=== PATIENT | female | born 1950 | race Caucasian/White ===

== ENCOUNTER 2016-07-06 08:53 | Day surgery (SDC) | payer MEDICARE, OTHER ==
[2016-07-06] MEDS ORDERED: KETOROLAC 0.45% OPHTH DROPS OPTH ONE (09:07)
[2016-07-06] MEDS ORDERED: CYCLOPENTOLATE 1% OPHTH DROPS 2 ML OPTH ONE (09:07)
[2016-07-06] MEDS ORDERED: TROPICAMIDE 1% OPHTH 2 ML DROPS OPTH ONE (09:07)
[2016-07-06] MEDS ORDERED: LACTATED RINGERS 500 ML IV ONE (09:13)
[2016-07-06] MEDS ORDERED: MIDAZOLAM 2 MG/2 ML VIAL IVP ONE (09:40)
[2016-07-06] MEDS ORDERED: CHONDR SULF/HYALURONATE SYRINGE IO ONE (10:14)
[2016-07-06] MEDS ORDERED: PROPARACAINE 0.5% OPHTH DROPS 15 ML OPTH ONE (10:14)
[2016-07-06] MEDS ORDERED: levoFLOXacin 0.5% OPHTH DROPS 5 ML OPTH ONE (10:14)
[2016-07-06] MEDS ORDERED: BSS/LIDOCAINE/EPINEPHRINE 1 ML SYRINGE IO ONE (10:14)
[2016-07-06] MEDS ORDERED: EPINEPHrine 1 MG/ML AMP IO ONE (10:14)
[2016-07-06] MEDS ORDERED: TETRACAINE OPHTH DROPS 2 ML OPTH ONE (10:14)
[2016-07-06] MEDS ORDERED: BRIMONIDINE 0.2% OPHTH DROPS 5 ML OPTH ONE (10:14)
[2016-07-06] MEDS ORDERED: SODIUM CHLORIDE 0.9% 100 ML IV ONE ×2 (10:17)
== END 2016-07-06 08:54 | disposition home or self-care (01) ==
PROC: 08RJ3JZ Replacement of Right Lens with Synthetic Substitute, Percutaneous Approach (ICD-10-PCS; principal; 2016-07-06 09:55)
DX: H25.11 Age-related nuclear cataract, right eye (principal); Z87.891 Personal history of nicotine dependence
CPT/HCPCS: 66984; V2632

== ENCOUNTER 2016-12-13 11:26 | Outpatient (CLI) | payer MEDICARE, OTHER ==
--- NOTE | 2016-12-14 17:32 | Mammography Report ---
DIGITAL SCREENING MAMMOGRAM: 12/13/2016 CLINICAL INDICATION: A 66-year-old with history of benign biopsy, history of bilateral implants for screening. COMPARISON: 11/2015, 12/2013, 12/2012, 11/2011. TECHNIQUE: Routine CC and MLO projections as well as bilateral implant displaced views were obtained of the breasts. The breasts again demonstrate scattered fibroglandular densities bilaterally. Bilateral silicone imp lants are again noted, with evidence of bilateral rupture. No suspicious masses, clustered microcalc ifications, or regions of architectural distortion are identified. IMPRESSION: BENIGN FINDINGS. RECOMMENDATION: ROUTINE ANNUAL SCREENING UNLESS OTHERWISE CLINICALLY INDICATED. BIRADS CATEGORY: 2, BENIGN FINDINGS. STANDARD QUALIFYING STATEMENTS 1. This examination was reviewed with the aid of Computed-Aided Detection (CAD). 2. A negative or benign imaging report should not delay biopsy if clinically suspicious findings are present. Consider surgical consultation if warranted. More than 5% of cancers are not identified b y imaging. 3. Dense breasts may obscure an underlying neoplasm. JOB #: [id number] EXT JOB #:[id number]
== END 2016-12-13 11:27 | disposition home or self-care (01) ==
LOC: DI 11:26
PROVIDERS: ATTEND Internal Medicine
DX: Z12.31 Encounter for screening mammogram for malignant neoplasm of breast (principal); Z98.82 Breast implant status
CPT/HCPCS: 77067

== ENCOUNTER 2017-12-18 15:29 | Outpatient (CLI) | payer MEDICARE, OTHER ==
--- NOTE | 2017-12-20 13:05 | Mammography Report ---
Procedure Date: 12/18/2017 Accession Number: [id number] / [id number] Procedure: [facility] - Screening Mammo Dig w/Implants CPT Code: FULL RESULT: EXAM: Screening Mammo Dig w/Implants DATE: 12/18/2017 3:56 PM CLINICAL HISTORY: SCREENING MAMMO/IMPLANT PROTOCOL TECHNIQUE: Bilateral digital CC and MLO projections with additional implant displaced views. COMPARISON: 12/13/2016, 12/01/2015, 12/26/2013, 12/20/2012, and 12/01/2011 FINDINGS: There are scattered fibroglandular densities. Bilateral deformed silicone implants with evidence of rupture are similar to previous. No new suspicious microcalcifications, new architectural distortion, masses, or interval change. IMPRESSION: Benign findings. BI-RADS 2. Suggest a follow-up routine screening in 12 months.
== END 2017-12-18 15:30 | disposition home or self-care (01) ==
LOC: DI 15:29
PROVIDERS: ATTEND Internal Medicine
DX: Z12.31 Encounter for screening mammogram for malignant neoplasm of breast (principal); Z98.82 Breast implant status
CPT/HCPCS: 77067